=== PATIENT | female | born 1995 | race Caucasian/White ===

== ENCOUNTER 2019-02-22 00:57 | Outpatient (CLI) | payer OTHER ==
[~2019-02-22] VITALS: Ht 157.5 cm; Wt 72.0 kg
[2019-02-22 00:44] VITALS: BP 134/88
== END 2019-02-22 04:14 | disposition home or self-care (01) ==
LOC: LDOP 00:57
PROVIDERS: ATTEND Obstetrics & Gynecology Maternal & Fetal Medicine
DX: Z34.90 Encounter for supervision of normal pregnancy, unspecified, unspecified trimester (principal); Z3A.40 40 weeks gestation of pregnancy
CPT/HCPCS: 59025; 81001; 87086; 96372; 96374; 99201; J2175; J3105; G0463

== ENCOUNTER 2019-03-31 04:55 | Inpatient (IN) | payer OTHER ==
[~2019-03-31] VITALS: Ht 160 cm; Wt 75.0 kg
[2019-04-03 07:30] VITALS: BP 119/73
== END 2019-04-03 15:03 | disposition home or self-care (01) | DRG 788 ==
LOC: LDOP 04:55 → LDIP 05:10 → 2NW 04-01 04:09
PROVIDERS: ADMIT Obstetrics & Gynecology Maternal & Fetal Medicine; ATTEND Obstetrics & Gynecology Maternal & Fetal Medicine
PROC: 10D00Z1 Extraction of Products of Conception, Low, Open Approach (ICD-10-PCS; principal; 2019-04-01)
DX: O64.0XX0 Obstructed labor due to incomplete rotation of fetal head, not applicable or unspecified (principal); O62.1 Secondary uterine inertia; Z3A.40 40 weeks gestation of pregnancy; Z37.0 Single live birth
CPT/HCPCS: 36415; J3490; J7121; 80053; 81001; 82570; 84156; 84550; 85025; 86850; 86900; G0378; J0690; J1885; J2274; J2704; J3010; J2370; J2590; J7120

== ENCOUNTER 2019-04-05 09:55 | Emergency (ER) | payer OTHER ==
[~2019-04-05] VITALS: Ht 160 cm; Wt 69.9 kg
[2019-04-05 11:45] VITALS: BP 144/83
== END 2019-04-05 13:46 | disposition home or self-care (01) ==
LOC: ED 10:17
DX: R06.00 Dyspnea, unspecified (principal)
CPT/HCPCS: 36415; 71275; 80053; 83735; 83880; 84484; 85025; 93005; 99284; Q9967